=== PATIENT | male | born 1935 | race Caucasian/White ===

== ENCOUNTER 2017-04-19 11:10 | Emergency (ER) | payer OTHER ==
[~2017-04-19] VITALS: Ht 182.9 cm; Wt 81.5 kg
[2017-04-19 11:48] LABS: HEMATOCRIT 41.8 % (38.0-50.0); MCHC 34.9 G/DL (30.0-36.0); MCV 83.1 FL (86-99); MEAN PLAT.VOLUME 9.8 uM^3 (9.0-12.4); PLATELET COUNT 201 K/uL (156-360); RBC DIS.WIDTH-CV 14.7 % (11.8-14.6); RBC DIS.WIDTH-SD 44.6 % (39-53); RED BLOOD COUNT 5.03 M/uL (4.00-5.50); WHITE BLOOD COUNT 12.6 K/uL (4.1-10.2)
[2017-04-19 12:07] LABS: CHLORIDE 108 mEq/L (99-109); POTASSIUM 3.7 mEq/L (3.7-5.4); SODIUM 141 mEq/L (136-147)
[2017-04-19 12:09] LABS: GLUCOSE 137 mg/dL (70-99)
[2017-04-19 12:10] LABS: ANION GAP 10 MEQ/L (2-14)
[2017-04-19 12:13] LABS: GFR ESTIMATE (CALCULATED) 48 mL/min/
[2017-04-19 12:14] LABS: UREA NITROGEN (BUN) 14 mg/dL (9-23)
[2017-04-19 14:28] VITALS: BP 145/89
== END 2017-04-19 14:31 | disposition home or self-care (01) ==
LOC: EME 11:10
PROVIDERS: Emergency Medicine
DX: S02.2XXA Fracture of nasal bones, initial encounter for closed fracture (principal); S00.31XA Abrasion of nose, initial encounter; S61.512A Laceration without foreign body of left wrist, initial encounter; S60.211A Contusion of right wrist, initial encounter; S80.212A Abrasion, left knee, initial encounter; Z23 Encounter for immunization; W01.0XXA Fall on same level from slipping, tripping and stumbling without subsequent striking against object, initial encounter; Y93.E9 Activity, other interior property and clothing maintenance; Z79.82 Long term (current) use of aspirin; F03.90 Unspecified dementia, unspecified severity, without behavioral disturbance, psychotic disturbance, mood disturbance, and anxiety; E78.5 Hyperlipidemia, unspecified; I10 Essential (primary) hypertension
CPT/HCPCS: 70450; 70486; 72125; 73110; 73564; 80048; 85027; 93005; 99281; 99284